=== PATIENT | male | born 1990 | race Caucasian/White ===

== ENCOUNTER 2016-04-21 08:58 | Inpatient (IN) | payer OTHER ==
[2016-04-21] MEDS ORDERED: ONDANSETRON 4 MG/2 ML VIAL ONE (09:29)
[2016-04-21 09:36] LABS: % IMMATURE GRANULYOCYTES 0.3 % (0.0-1.1); ABSOLUTE IMMATURE GRANULOCYTES 0.02 10^3/uL (0.00-0.10); ADD DIFF? NO; ADD MORPH? NO; ADD SCAN? NO; ATYPICAL LYMPHOCYTE FLAG 10 (0-99); FRAGMENT RBC FLAG 0 (0-99); HEMATOCRIT 46.5 % (40.0-51.0); HEMOGLOBIN 16.6 g/dL (13.7-17.5); LEFT SHIFT FLG 0 (0-99); LIPEMIA HEMOLYSIS FLAG 90 (0-99); MEAN CELL HEMOGLOBIN 29.9 pg (27.9-34.1); MEAN CELL HEMOGLOBIN CONCENTR. 35.7 g/dL (32.4-36.7); MEAN CELL VOLUME 83.8 fL (81.5-99.8); MEAN PLATELET VOLUME 11.7 fL (8.7-11.7); PLATELET CLUMPS FLAG 40 (0-99); PLATELET COUNT 230 10^3/uL (150-400); RED BLOOD CELL COUNT 5.55 10^6/uL (4.40-6.38)
[2016-04-21] MEDS ORDERED: ONDANSETRON 4 MG/2 ML VIAL IVP ONE (09:45)
--- NOTE | 2016-04-21 09:45 | EDPHY ---
H & P Time Seen by Provider: 04/21/16 09:10 HPI/ROS: CHIEF COMPLAINT: overdose HISTORY OF PRESENT ILLNESS: Patient is a 25-year-old male with a history of depression and previous suicide attempt presents to the emergency department intoxicated with suicidal ideation. Per the patient's parents, who contribute to his history, the patient called them from the roadside. He was in [place] driving his car when he ran out of gas. Per his friends had been drinking heavily last evening. He reports that he took an overdose of Tylenol. Patient has been feeling depressed recently. He recently broke up with his girl friend. Patient had a previous suicide attempt with Tylenol overdose in January and [facility] He was subsequently sent to [facility]. He is currently on no medications. He sees a therapist named Wyatt at [facility]. REVIEW OF SYSTEMS: Patient refuses to answer review of symptoms questions Past Medical/Surgical History: Depression, HPV Past surgical history: Shoulder surgery Social history: The patient drinks alcohol. Does not smoke. Smoking Status: Never smoked Physical Exam: Vitals noted. Tachycardia 108. GENERAL: intoxicated appearing, no acute distress, alert. HEENT: Injected conjunctiva bilaterally, normal pharynx, no signs of dehydration. NECK: No thyromegaly, no lymphadenopathy, supple. RESPIRATORY: Clear to auscultation bilaterally, no rales, rhonchi or wheezing. CVS: Regular rate and rhythm, no rubs, murmurs, or gallops. ABDOMEN: Soft, nontender, nondistended, no organomegaly. Benign BACK: Normal to inspection, no CVA tenderness. SKIN: Normal color, no rash, warm, dry. No pallor. EXTREMITIES: No pedal edema, no calf tenderness, no Homans sign or cords, no joint swelling. NEURO/PSYCH: Alert. Oriented to place and name. Intoxicated appearing. Moves all extremities. No obvious focal neurologic deficit. Constitutional: Initial Vital Signs Temperature (C) 36.1 C 04/21/16 09:00 Heart Rate 108 H 04/21/16 09:00 Respiratory Rate 16 04/21/16 09:00 Blood Pressure 123/82 H 04/21/16 09:00 O2 Sat (%) 99 04/21/16 09:00 O2 Delivery Mode Room Air O2 (L/minute) 2 Allergies/Adverse Reactions: No Known Allergies Allergy (Unverified 01/20/16 00:47) Home Medications: Medication Instructions Recorded Thiamine HCl [Vitamin B-1] 100 mg PO DAILY #0 tab 01/21/16 Medical Decision Making - Diagnostics EKG Interpretation: EKG shows normal sinus rhythm, normal rate, normal axis, normal intervals. There are no ST or T-wave abnormalities. EKG is normal as interpreted by me. ED Course/Re-evaluation: In the emergency department I met the patient on arrival. I took history from the patient's parents as he was minimally answering questions. Laboratory studies and EKG were ordered. The patient was placed on I M1 hold. I discussed this with the patient and his parents were present in the room. Patient was noted to have an elevated Tylenol level 167. I reviewed the Jeancarlos Salomón nomogram. The patient's time of ingestion is unknown. Based on this fact he will be treated with N-acetylcysteine. 955: I contacted [place] [facility] control to discuss the case. I was placed on hold for greater than 10 minutes. As I have other patients in the emergency department I will call poison Control back. I discussed the plan with patient's family. Patient was noted to have an alcohol level of 80. 1010: I re-paged poison Control. I was on hold for 10 minutes. I discussed the case with poison Control. They agree with my plan for . They recommend patient return see the entire treatment course of acetylcysteine because onset is unknown. LFTs, coags and lipase were ordered. I discussed the findings and plan with the patient and his family. I answered all their questions. I discussed the case with the hospitalist service. Dr. Mari will admit to the ICU. Differential Diagnosis: My differential includes but is not limited to suicidal ideation, depression, alcohol intoxication, Tylenol overdose, aspirin overdose, drug ingestion, electrolyte abnormality, sugar a Critical Care Time: Patient required 35 minutes of critical care time. This was exclusive of any unbundled procedure. This was due to the patient's overdose, elevated Tylenol level, need for antidote with N-acetylcysteine, admission to the ICU and consultation with poison Control and Internal Medicine. - Data Points Laboratory Results: Laboratory Results 04/21/16 09:15 04/21/16 09:15 04/21/16 09:15 WBC 7.06 10^3/uL (3.80-9.50) RBC 5.55 10^6/uL (4.40-6.38) Hgb 16.6 g/dL (13.7-17.5) Hct 46.5 % (40.0-51.0) MCV 83.8 fL (81.5-99.8) MCH 29.9 pg (27.9-34.1) MCHC 35.7 g/dL (32.4-36.7) RDW 12.0 % (11.5-15.2) Plt Count 230 10^3/uL (150-400) MPV 11.7 fL (8.7-11.7) Neut % (Auto) 77.9 H % (39.3-74.2) Lymph % (Auto) 16.0 % (15.0-45.0) Starke % (Auto) 5.5 % (4.5-13.0) Eos % (Auto) 0.0 L % (0.6-7.6) Baso % (Auto) 0.3 % (0.3-1.7) Nucleat RBC Rel Count 0.0 % (0.0-0.2) Absolute Neuts (auto) 5.50 10^3/uL (1.70-6.50) Absolute Lymphs (auto) 1.13 10^3/uL (1.00-3.00) Absolute Monos (auto) 0.39 10^3/uL (0.30-0.80) Absolute Eos (auto) 0.00 L 10^3/uL (0.03-0.40) Absolute Basos (auto) 0.02 10^3/uL (0.02-0.10) Absolute Nucleated RBC 0.00 10^3/uL (0-0.01) Immature Gran % 0.3 % (0.0-1.1) Immature Gran # 0.02 10^3/uL (0.00-0.10) Sodium 143 mEq/L (134-144) Potassium 4.3 mEq/L (3.5-5.2) Chloride 108 mEq/L (97-110) Carbon Dioxide 16 L mEq/l (22-31) Anion Gap 19 mEq/L (8-16) BUN 12 mg/dL (7-23) Creatinine 1.1 mg/dL (0.7-1.3) Estimated GFR > 60 Glucose 90 mg/dL (70-100) Calcium 9.7 mg/dL (8.5-10.4) Salicylates < 1.0 L mg/dL (2.0-20.0) Acetaminophen 167 H* mcg/mL (10.0-30.0) Ethyl Alcohol 80 H mg/dL (0-10) Departure - Departure Disposition: [facility] IP Clinical Impression: Alcoholism, Attempted suicide Acetaminophen overdose Qualifiers: Encounter type: initial encounter Injury intent: intentional self-harm Qualifier Code: (T39.1X2A) Poisoning by 4-Aminophenol derivatives, intentional self-harm, initial encounter Condition: Good Referrals: IN STATE,. [Primary Care Provider] - As per Instructions
[2016-04-21 09:50] LABS: ANION GAP 19 mEq/L (8-16); CALCIUM 9.7 mg/dL (8.5-10.4); CARBON DIOXIDE 16 mEq/l (22-31); CHLORIDE 108 mEq/L (97-110); CREATININE 1.1 mg/dL (0.7-1.3); ETHANOL SERUM 80 mg/dL (0-10); GLOMERULAR FILTRATION RATE > 60; GLUCOSE 90 mg/dL (70-100); POTASSIUM 4.3 mEq/L (3.5-5.2); SALICYLATE < 1.0 mg/dL (2.0-20.0); SODIUM 143 mEq/L (134-144)
--- NOTE | 2016-04-21 10:14 | CPEKG ---
Heart Rate: 92 RR Interval: 652 P-R Interval: 164 QRSD Interval: 76 QT Interval: 372 QTC Interval: 461 P Brock[place]: 53 QRS [place]: 33 T Wave Brock[place]: 42 EKG Severity - NORMAL ECG - EKG Impression: SINUS RHYTHM Electronically Signed By: Daija Del Valle 21-Apr-2016 15:11:20
[2016-04-21] MEDS ORDERED: ACETYLCYSTEINE IV PROTOCOL 1 EACH MISC SCH (10:30)
[2016-04-21] MEDS ORDERED: D5W IV ONE ×3 (10:30→15:30)
[2016-04-21] MEDS ORDERED: ACETYLCYSTEINE IV ONE ×3 (10:30→15:30)
[2016-04-21 10:42] LABS: ALBUMIN 4.5 g/dL (3.5-5.0); BILIRUBIN,TOTAL 0.7 mg/dL (0.1-1.4); BILIRUBIN-CONJUGATED 0.3 mg/dL (0.0-0.5); BILIRUBIN-UNCONJUGATED 0.4 mg/dL (0.0-1.1); TOTAL PROTEIN 7.6 g/dL (6.3-8.2)
[2016-04-21 10:54] LABS: INR 1.02 (0.83-1.16); PROTIME(PATIENT) 13.3 SEC (12.0-15.0)
[2016-04-21] MEDS ORDERED: ONDANSETRON 4 MG/2 ML VIAL IVP PRN (10:54)
[2016-04-21] MEDS ORDERED: ZOLPIDEM TARTRATE 5 MG TAB PO PRN (10:54)
[2016-04-21 10:55] LABS: APTT 28.4 SEC (23.0-38.0)
--- NOTE | 2016-04-21 10:59 | PDGENHP ---
History and Physical History and Physical: HISTORY AND PHYSICAL ADMISSION NOTE CC: HISTORY: This man, who I took care of in January for a Tylenol overdose here, comes in this morning after another Tylenol overdose, intentional. He states he has been depressed still over the break up of with his girlfriend and has been drinking alcohol on a daily basis though says he has lost track of how much. Initially in the ER he would not elaborate on what he took or when but at this time he tells me he took 100 tablets of 500 mg Tylenol at 3 o'clock this morning. He had been drinking alcohol last night. He denies ingesting any other medications, street drugs, or other potentially hazardous chemicals. His main complaint to me now is that he feels very nauseous. Other than this and his depression he has not had symptoms of physical illness of late. After his Tylenol overdose was treated with Mucomyst here in January, he was transferred to the [facility] where he spent 5 days as an inpatient. Since then he has been visiting with a therapist at the [facility]. It sounds like he is not on antidepressant or other psychiatric medications at home. Are reconciliation pharmacist ascertained that he takes no prescribed other medications at home at this time. ROS: 10 system comprehensive review of systems is obtained, and aside from the above is negative PAST MEDICAL HISTORY: Depression Suicide attempt with Tylenol overdose FAMILY MEDICAL HISTORY: SOCIAL HISTORY: Single, broke up with girlfriend in January. 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: sinus rhythm Examination: General: alert, oriented, good mentation Looks fairly uncomfortable but in no distress Skin: warm, dry, good color, no rash or jaundice HEENT: normal Neck: no mass or jvd Resps: relaxed Lungs: clear breath sounds Heart: regular, no murmur Abdomen: soft, nondistended, nontender, +BS, no mass Upper Extremities: normal Lower Extremities: no edema, warm No Bleeding or bruising Neurologic: normal speech/language, 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 today. His blood test was at 9 o' clock with a level in the range of 170. This would certainly be well above the toxic range as would be expected if the dose he is saying is correct. Either way it is very clear that at this time he will need a full course of Mucomyst therapy. As he arrives here with good liver enzymes and normal INR, it is expected he that he should do well as long as we complete the Mucomyst therapy. His alcohol use does increase the risk of toxicity. I have discussed all the above with the patient and his parents who are at the bedside. PLANS: Continue M1 hold Complete Mucomyst therapy in ICU Follow INR liver enzymes and acid-base status closely Follow for any signs of other ingestions or toxicities He will clearly need to have inpatient mental health evaluation again once he is stabilized medically. Antidepressant medicine is strongly recommended. I have reviewed the patient's case in detail with Dr. Daija Del Valle. I have reviewed the patient's past medical records as part of this assessment, including previous hospital visit notes and laboratory data
[2016-04-21] MEDS ORDERED: NS 1,000 ML IV SCH (11:00)
[2016-04-21] MEDS ORDERED: PROMETHAZINE HCL 25 MG/ML VIAL IVP PRN (11:47)
[2016-04-21 13:02] LABS: ALANINE AMINOTRANSFERASE 27 IU/L (21-72); ANION GAP 18 mEq/L (8-16); ASPARTATE AMINOTRANSFERASE 36 IU/L (17-59); BILIRUBIN,TOTAL 0.7 mg/dL (0.1-1.4); CALCIUM 8.8 mg/dL (8.5-10.4); CARBON DIOXIDE 22 mEq/l (22-31); CHLORIDE 104 mEq/L (97-110); CREATININE 0.9 mg/dL (0.7-1.3); GLOMERULAR FILTRATION RATE > 60; GLUCOSE 100 mg/dL (70-100); SODIUM 144 mEq/L (134-144); TOTAL PROTEIN 6.7 g/dL (6.3-8.2)
[2016-04-21 13:23] LABS: ALKALINE PHOSPHATASE < 20 IU/L (38-126)
[2016-04-21] MEDS: LORazepam 0.5 MG TAB PO PRN (23:05)
[2016-04-22 04:55] LABS: % IMMATURE GRANULYOCYTES 0.2 % (0.0-1.1); ABSOLUTE IMMATURE GRANULOCYTES 0.01 10^3/uL (0.00-0.10); ADD DIFF? NO; ADD MORPH? NO; ADD SCAN? NO; ATYPICAL LYMPHOCYTE FLAG 10 (0-99); FRAGMENT RBC FLAG 0 (0-99); HEMATOCRIT 45.7 % (40.0-51.0); HEMOGLOBIN 15.5 g/dL (13.7-17.5); LEFT SHIFT FLG 0 (0-99); LIPEMIA HEMOLYSIS FLAG 90 (0-99); MEAN CELL HEMOGLOBIN CONCENTR. 33.9 g/dL (32.4-36.7); MEAN CELL VOLUME 88.6 fL (81.5-99.8); MEAN PLATELET VOLUME 11.7 fL (8.7-11.7); PLATELET CLUMPS FLAG 10 (0-99); PLATELET COUNT 146 10^3/uL (150-400); RED BLOOD CELL COUNT 5.16 10^6/uL (4.40-6.38); RED CELL DISTRIBUTION WIDTH 12.2 % (11.5-15.2)
[2016-04-22 05:08] LABS: ALANINE AMINOTRANSFERASE 34 IU/L (21-72); ALBUMIN 3.7 g/dL (3.5-5.0); ALKALINE PHOSPHATASE 47 IU/L (38-126); ANION GAP 10 mEq/L (8-16); ASPARTATE AMINOTRANSFERASE 33 IU/L (17-59); BILIRUBIN,TOTAL 0.9 mg/dL (0.1-1.4); CALCIUM 8.8 mg/dL (8.5-10.4); CARBON DIOXIDE 24 mEq/l (22-31); CHLORIDE 106 mEq/L (97-110); CREATININE 0.9 mg/dL (0.7-1.3); GLOMERULAR FILTRATION RATE > 60; GLUCOSE 93 mg/dL (70-100); POTASSIUM 3.8 mEq/L (3.5-5.2); SODIUM 140 mEq/L (134-144)
[2016-04-22 08:15] VITALS: O2SAT 96
[2016-04-22 09:08] LABS: INR 1.14 (0.83-1.16); PROTIME(PATIENT) 14.5 SEC (12.0-15.0)
[2016-04-22 16:32] VITALS: BP 131/82; PULSE 73; RESP 14; TEMP 98.5
--- NOTE | 2016-04-22 17:53 | HOSPPROG ---
Hospitalist Progress Note Assessment/Plan: DIAGNOSIS: # ACUTE INTENTIONAL TYLENOL OVERDOSE # DEPRESSION # SUICIDE ATTEMPT PLANS: - he has completed the Mucomyst protocol with good correction of Tylenol level is undetectable without any evidence of liver enzyme elevation, coagulopathy, and his metabolic acidosis has resolved. At this time we can stop his Mucomyst - I spent approximately 30 minutes with the patient and his parents reviewing his depression, anxiety, alcohol abuse issues and treatment strategies for these and answered all of their questions. -At this time he is stable for discharge from the medical acute care unit however S he has [employer] insurance and they will not allow him to use our inpatient behavioral health unit, we are waiting for further attempts at placement in another Behavioral Health Unit as he clearly needs inpatient stabilization. For the time being he will remain in our intensive care unit on M1 hold until we could get him placed in Behavioral Health Unit. SUBJECTIVE: Nausea and abdominal discomfort have completely resolved and he is eating well No other new acute symptoms OBJECTIVE Vitals reviewed: Stable without fever panel monitor, my personal review: Sinus rhythm Exam: alert oriented skin warm dry color ok resps not labored lungs clear BSs heart regular abd soft nondistended nontender, bowel sounds present limbs warm, no edema iv site ok Laboratory data: Tylenol level now undetectable, liver enzymes normal, bilirubin normal, no coagulopathy, metabolic acidosis resolved Objective: Vital Signs Temp Pulse Resp BP Pulse Ox 36.9 C 73 14 131/82 H 96 04/22/16 16:00 04/22/16 16:00 04/22/16 16:00 04/22/16 16:00 04/22/16 16:00 Laboratory Results 04/22/16 04:40 04/22/16 04:40 04/21/16 04/22/16 04/23/16 06:59 06:59 06:59 Intake Total 1550 Balance 1550 PT 14.5 SEC (12.0-15.0) 04/22/16 04:40 INR 1.14 (0.83-1.16) 04/22/16 04:40 ICD10 Worksheet Patient Problems: Problems Problem Status Diagnosed Acetaminophen overdose Acute Alcoholism Acute Attempted suicide Acute Suicidal ideation Acute
[2016-04-22] MEDS: LORazepam 0.5 MG TAB PO PRN (19:24)
== END 2016-04-22 20:49 | DRG 918 ==
LOC: EEVIPCON 10:54 → OBSVTOIN 10:54 → F2N 11:17
PROVIDERS: ADMIT Internal Medicine; ATTEND Internal Medicine
DX: T39.1X2A Poisoning by 4-Aminophenol derivatives, intentional self-harm, initial encounter (principal); F10.129 Alcohol abuse with intoxication, unspecified; F32.9 Major depressive disorder, single episode, unspecified; E87.2 Acidosis; Z91.5 Personal history of self-harm; Y90.4 Blood alcohol level of 80-99 mg/100 ml
CPT/HCPCS: 96365; G0480; J0132; J2405; J2550